=== PATIENT | male | born 1945 | race Caucasian/White ===

== ENCOUNTER → 2017-11-22 | Outpatient (CLI) | payer BC, OTHER | LOC: MRI 06:05 → EDSTATUS 16:57 | DX: D31.41 Benign neoplasm of right ciliary body (principal) ==

== ENCOUNTER → 2020-11-09 | Outpatient (CLI) | payer OTHER | LOC: MRI 09:39 | PROVIDERS: ATTEND Ophthalmology | DX: D31.61 Benign neoplasm of unspecified site of right orbit (principal) ==